=== PATIENT | female | born 1990 | race Caucasian/White ===

== ENCOUNTER 2017-03-09 05:21 | Emergency (ER) | payer OTHER ==
[~2017-03-09] VITALS: Ht 160 cm; Wt 76.0 kg
[2017-03-09 05:27] VITALS: TEMP 36.8; Ht 160 cm; Wt 76.0 kg
[2017-03-09] MEDS ORDERED: TROLAMINE SALICYLATE 10% CRM 255 APPLN/85 GM TUBE EXT STA (05:40)
[2017-03-09] MEDS ORDERED: BACLOFEN 10 MG TAB PO ONE (05:45)
--- NOTE | 2017-03-09 05:49 | EMERGENCY ROOM VISIT NOTE ---
History First contact with patient: 05:32 Chief Complaint: NECK PAIN Stated Complaint: NECK PAIN-WORSE AT NIGHT PAST 4 DAYS History of Present Illness The patient is a 26 year old female who presents to the Emergency Room with complaints of right upper back pain for the past 4 days. She describes the pain as aching, ranging in severity 5 out of 10 worse with movement and better with rest. Patient has been lifting weights at the gym. No direct injury. Patient denies fall, C-spine pain, thoracic pain, spinal pain, headache, numbness, tingling, radiating pain, chest pain, dyspnea, tobacco use, recent travel, leg pain or swelling, abdominal pain. She has tried Motrin with minimal relief of symptoms. Review of Systems See HPI for pertinent positives & negatives. A total of 10 systems reviewed and were otherwise negative. Past Medical/Surgical History None Social History Smoking Status: Never Smoker Smokeless Tobacco Use: No Drug Use: none Occupation Status: [employer] student Current/Historical Medications No Active Prescriptions or Reported Meds Physical Exam Vital Signs Date Time Temp Pulse Resp B/P (MAP) Pulse Ox O2 Delivery O2 Flow Rate FiO2 03/09/17 05:27 36.8 102 20 139/91 95 Room Air Physical Exam VITALS: Vitals are noted on the nurse's note and reviewed by myself. Vital signs stable. GENERAL: Pleasant female, in no acute distress, nondiaphoretic, well-developed well-nourished. SKIN: Capillary reflex less than 2 seconds. HEENT: Normocephalic. PERRLA. EOMI. Nares patent. Mucous membranes moist. Neck is supple without nuchal rigidity. No C-spine tenderness. Full range of motion of the neck without pain. HEART: Regular rate and rhythm without murmurs gallops or rubs. LUNGS: Clear to auscultation bilaterally without wheezes, rales or rhonchi. No retractions or accessory muscle use. ABDOMEN: Positive bowel sounds x 4. Normal tympanic percussion. Soft, nontender, without masses or organomegaly. Ponce sign negative. No guarding or rebound tenderness. MUSCULOSKELETAL: No gross musculoskeletal defects. No thoracic or lumbar tenderness on exam, right upper back over the trapezius tender to palpation easily reproducing symptoms. 5 Out of 5 strength to the upper extremities. NEURO: Patient was alert and oriented to person place and time. Normal sensation to light and sharp touch. No focal neurological deficits. Medical Decision & Procedures ED Course Prior records/ancillary studies reviewed. Triage Nursing notes reviewed. The patient's history was concerning for right upper back pain. Differential diagnosis: Etiologies such as musculoskeletal, disc herniation, fracture, aortic disease, metastatic disease, cord compression, discitis, infection, renal colic, gastrointestinal, acute exacerbation of chronic back pain, sciatica, cauda equina, as well as others were entertained. Physical findings: As above. No focal neurologic findings noted. ER treatment provided: Baclofen, Myoflex cream On reassessment the patient felt better. Diagnostics interpreted by me: Deferred This appears to be consistent with right upper back strain from the trapezius muscle. Patient was neurovascular and neurologically intact. She had no deficits on exam. She is advised to take medications as directed and to stretch the area out. She is advised to follow-up orthopedics if symptoms persist or here in the ER sooner for severe pain, numbness, tingling, inability to walk, worsening signs or symptoms or as needed. The patient's physical examination and detailed history did not reveal any red flags for back pain such as those listed in the differential diagnosis. Therefore advanced diagnostics and consultations were felt to be unwarranted. By the evaluation outlined above emergent etiologies such as fracture, aortic disease, metastatic disease, infection, renal colic, gastrointestinal, cord compression, cauda equina, as well as others were deemed relatively unlikely. The pt informed about the findings as listed above. All questions were answered and pleased with the treatment. Return instructions were outlined and the patient was discharged in stable condition. Outpatient prescription management: Baclofen Referral: The patient was referred back to orthopedics and/or primary care physician for follow-up in 2 to 3 days for a recheck of the current condition. Medical Decision As above [place] Drug Monitoring Program Search Results: patient reviewed within database, no issues identified Medication Reconcilliation Current Medication List: was personally reviewed by me Blood Pressure Screening Patient's blood pressure: Normal blood pressure Impression Primary Impression: Muscle strain of right upper back Departure Information Dispostion Home / Self-Care Condition GOOD Prescriptions No Active Prescriptions or Reported Meds Referrals Karan Loomis M.D. Forms WORK / SCHOOL INSTRUCTIONS, HOME CARE DOCUMENTATION FORM, IMPORTANT VISIT INFORMATION Patient Instructions Head Tilt, Back Pain - [facility], My [facility] Additional Instructions Myoflex cream applied to the affected area 2-3 times a day. Baclofen 10 m tablet every 8 hours as needed for muscle tightness. Ibuprofen(Motrin, Advil) may be used for fever or pain. Use 600mg every six hours as needed. Take with food. Avoid using more than 2400mg in a 24 hour period. Do not use 2400mg per day for more than three consecutive days without physician direction. Prolonged inappropriate use can lead to stomach upset or ulcers. This medication can be taken if you need to drive, work, or perform activities which may be dangerous when taking narcotic pain medication. (AND/OR) Acetaminophen(Tylenol) may be used for fever or pain. Use 1000mg every six hours as needed. Avoid using more than 3000mg in a 24 hour period. This medication can be taken if you need to drive, work, or perform activities which may be dangerous when taking narcotic pain medication. Rest and avoid heavy lifting until your symptoms resolve and then gradually return to full activity. A good rule of thumb is if it hurts your back to perform a certain activity, then it should be avoided until you are healthy again. A heating pad, warm compresses, or a hot shower may help with tight muscles and can be done several times a day as needed. Continue current medications. Return to the ER immediately for any numbness, tingling, severe pain, loss of control of your bowels or bladder, inability to walk, or as needed. Follow up with your primary care physician or orthopedics if symptoms persist within 3-5 days for a recheck of your current condition. Problem Qualifiers Primary Impression: Muscle strain of right upper back Encounter type: initial encounter Qualified Codes: S29.012A - Strain of muscle and tendon of back wall of thorax, initial encounter
[2017-03-09] MEDS ORDERED: BACL1TAB PO (05:53)
[2017-03-09 06:00] VITALS: BP 126/87; PULSE 98; O2SAT 96
== END 2017-03-09 06:01 | disposition home or self-care (01) ==
LOC: C.EDB 05:22 → C.EDA 06:01
DX: S29.012A Strain of muscle and tendon of back wall of thorax, initial encounter (principal); X50.9XXA Other and unspecified overexertion or strenuous movements or postures, initial encounter